=== PATIENT | female | born 1935 | race Caucasian/White ===

== ENCOUNTER 2019-02-23 12:21 | Inpatient (IN) | payer MEDICARE ==
[~2019-02-23] VITALS: Ht 157.5 cm; Wt 70.5 kg
[~2019-02-23 12:21] MED LIST: ALEVE PM CAPLE1 EACH PO; AMLO10 PO; ANTI-ANXIETY MED; ATOR40TA PO; Aspirin EC81 MG PO; Benazepril HCl40 MG PO; CLON1 PO; CLOP75 PO; METO25ER PO
[2019-02-23] MEDS ORDERED: SYNTHROID25 MCG PO (13:40)
[2019-02-23] MEDS ORDERED: CLONAZEPAM1 MG PO (13:41)
[2019-02-23] MEDS ORDERED: Benazepril HCl20 MG PO (13:41)
[2019-02-23 16:34] LABS: Troponin I 0.266 ng/mL (0.000-0.040)
--- NOTE | 2019-02-23 17:45 | NUR ---
eCHOCARDIOGRAM COMPLETED.
--- NOTE | 2019-02-23 18:51 | NUR ---
SHIFT SUMMARY Marisol arrived from ED around 4pm. denies chest pain at this time. oriented but soemwhat forgetful. npo until next troponin. plavix and lovenox held for possible procedure if troponin level rises. independent in room. took meds as prescribed. wctm
--- NOTE | 2019-02-23 20:07 | NUR ---
PT ASSESSED. DENIED PAIN, DENIED DIFFICULTY WITH BREATHING. sKIN WARM TO TOUCH. aLERT AND ORIENTED, DISCUSSED TROP LEVELS. K PAD TO FEET (SAID HER FEET WERE COLD). cALL LIGHT IN REACH. AGREES TO USE CALL LIGHT PRIOR TO GETTING UP.
--- NOTE | 2019-02-23 22:08 | NUR ---
Lab called with 2100 Troponin level: 5.370. electric tool repairer MD notified (Dr Toledo). Orders received to transfer to PCU and place on a Heparin Drip per pharmacy dosong after said trop level is posted.
[2019-02-23 22:10] LABS: Troponin I 5.37 ng/mL (0.000-0.040)
--- NOTE | 2019-02-23 22:40 | NUR ---
PT WAS ON OBSERVATION FOR CHEST PAIN. NPO UNTIL TROP LEVEL ZERO. TROPONIN LEVELS WERE MONITORED, AT SHIFT COMMENCE TROP LEVEL 0.266. TROP LEVEL DRAWN AT 2100: 5.370. ASYMPTOMATIC. DENIED CHEST PAIN, SKIN WARM TO TOUCH. ALERT AND ORIENTED. CALL PLACED TO MD. MD ORDERED TRANSFER TO PCU AND START A HEPARIN DRIP PER PHARMACY TO DOSE. VS TAKEN - HR 61; R 16 UNLABORED; BP 114/89; T 97.2 F - TEMPORAL. REPORT GIVEN TO DESMOND PERRY RN ON PCU. PT TRANSFERRED PER MD ORDER.
[2019-02-23 22:44] LABS: Creatine Kinase MB 41.9 ng/mL (0.0-3.6)
[2019-02-23 23:18] LABS: International Normalized Ratio 1.03; Prothrombin Time Results 10.9 Sec (9.7-11.5)
[2019-02-24 05:54] LABS: BASOPHILS ABSOLUTE AUTO 0.05 K/mm3 (0.00-0.23); BASOPHILS PERCENT AUTO 1 % (0-2); EOSINOPHILS ABSOLUTE AUTO 0.33 K/mm3 (0.00-0.68); EOSINOPHILS PERCENT AUTO 3 % (0-6); Hematocrit 36.7 % (33.0-51.0); Hemoglobin 12.3 g/dL (11.5-16.0); IMMATURE GRAN ABSOLUTE AUTO 0.04 K/mm3 (0.00-0.10); IMMATURE GRAN PERCENT AUTO 0 % (0-1); LYMPHOCYTES ABSOLUTE AUTO 2.37 K/mm3 (0.84-5.20); LYMPHOCYTES PERCENT AUTO 21 % (21-46); MONOCYTES ABSOLUTE AUTO 1.08 K/mm3 (0.16-1.47); MONOCYTES PERCENT AUTO 10 % (4-13); Mean Corpuscular HGB 31.1 pg (26.0-34.0); Mean Corpuscular HGB Conc 33.5 g/dL (31.5-36.5); Mean Corpuscular Volume 93 fL (80-100); Mean Platelet Volume 10.7 fL (9.1-12.4); NEUTROPHILS ABSOLUTE AUTO 7.24 K/mm3 (1.96-9.15); NEUTROPHILS PERCENT AUTO 65 % (41-73); Platelet Count 331 K/mm3 (150-400); RDW Coefficient Variation 13.2 % (11.7-14.2); RDW Standard Deviation 44.7 fL (35.1-46.3); Red Blood Cell Count 3.96 M/mm3 (3.80-5.20); White Blood Cell Count 11.11 K/mm3 (4.00-11.30)
--- NOTE | 2019-02-24 06:11 | NUR ---
PATIENT TRANSFERED FROM MEDICAL FLOOR PATIENT TRANSFERED DOWN FROM MEDICAL FLOOR DUE TO INCREASE IN TROPONIN - SEE LAB VALUES. PATIENT ARRIVES TO UNIT IN NSR - EKG PERFORMED (IN CHART). PATIENT ALERT AND ORIENTED X4 T/O SHIFT (FORGETFUL AT TIMES BUT REMEMBERS EASILY). PATIENT DENIES ANY PAIN OR SPECIFIC CHEST PAIN AT T/O THIS RNS' SHIFT. LUNG SOUNDS CLEAR - PATIENT ON ROOM AIR. VSS. PATIENT IN NSR T/O SHIFT WITH NO CARDIAC EVENTS. CALL LIGHT W/I REACH. PATIENT AMBULATES TO BATHROOM W/ SBA DUE TO LINES WELL. HEPARIN GTT AND NS GTT RUNNING PER EMAR. WILL CONTINUE TO MONITOR AND REPORT TO DAYSHIFT RN.
[2019-02-24 06:17] LABS: Anion Gap 8 mmol/L (6-16); Blood Urea Nitrogen 13 mg/dL (8-24); Bun/Creatinine Ratio 16.7 (12.0-20.0); CO2, Blood 21 mmol/L (21-32); Calcium, Blood 8.5 mg/dL (8.5-10.1); Chloride, Blood 114 mmol/L (98-108); Creatinine, Blood 0.78 mg/dL (0.40-1.00); Glomerular Filtration Rate >60 (60-); Glucose, Blood 96 mg/dL (70-99); Potassium, Blood 3.8 mmol/L (3.5-5.5); Sodium, Blood 143 mmol/L (136-145)
--- NOTE | 2019-02-24 07:41 | NUR ---
Heparin gtt verified at bedside with Flaco Mendez RN. Pt is alert, oriented, and pleasantly conversant. IVF NS also infusing at 100 cc/ hour.
[2019-02-24 08:53] LABS: Cholesterol 186 mg/dL (50-200); HDL Cholesterol 31 mg/dL (>39); LDL/HDL RATIO 3.7; Low Density Lipoprotein Chol 115 mg/dL (0-110); Triglycerides 202 mg/dL (30-160); Very Low Density Lipoprot Chol 40 mg/dL (6-32)
--- NOTE | 2019-02-24 09:03 | NUR ---
Asssisted Marisol with making phone calls to her , and also to a friend who can go pick her up. States that her has dementia. Marisol herself shows forgetfulness, and some difficulty understanding what is going on. Asked twice to have her IVs removed, and needed reminding as to what they were for. Assisted to bedside commode to void. States now she is having left sided chest discomfort, rates it at 2/10. Denies dyspnea. Report will be called by Flaco Mendez to ICU. Anticipate transfer of pt to ICU 8 shortly.
--- NOTE | 2019-02-24 09:22 | NUR ---
Dr. Rojotrate here, updated on pt condition and plan to transfer to ICU. Pt denies chest discomfort at this time.
--- NOTE | 2019-02-24 09:25 | NUR ---
PATIENT TRANSFER ORDERS RECEIVED FOR TRANSFER TO ICU, PATIENT LEFTY ROM AND UNIT IN HER BED BY TWO PCU STAFF, NO C/O PAIN AT THIS TIME.
--- NOTE | 2019-02-24 09:35 | NUR ---
INITIAL ASSESSMENT PATIENT ARRIVED TO ICU FROM PCU AT 0925. PATIENT ALERT AND ORIENTED X 4, ALTHOUGH APPEARS FORGETFUL AT TIMES. PATIENT OCCASIONALLY MAKES COMMENTS THAT ARE OUT OF CONTEXT FROM CONVERSATION. PATIENT STATES THAT HER HAS ALZHEIMERS BUT THAT A FRIEND WAS GOING TO BRING HIM IN TO SEE HER. PATIENT AFEBRILE. PATIENT WEAK, 1 PERSON ASSIST. PATIENT COMPLAINS OF 3/10 "ACHY CHEST PAIN". PATIENT WILL BE STARTED ON NITRO DRIP. PATIENT SATTING 90% AND GREATER ON RA. LUNGS CLEAR THROUGHOUT. PATIENT DENIES COUGH. PATIENT IN SR, HR IN THE 90S. BP STABLE. GI AND APPEAR WNL. SKIN PALE, COOL, FRAGILE, OTHERWISE APPEARS C/D/I. NS INFUSING AT 100 MLS/ HOUR. HEPARIN DRIP INFUSING AT 13 UNITS/ KG/ HOUR. PATIENT ORIENTED TO UNIT, ROOM, AND CALL SYSTEM. BED LOW, CALL LIGHT IN REACH. WILL CONTINUE TO MONITOR PATIENT FREQUENTLY THROUGHOUT SHIFT.
--- NOTE | 2019-02-24 12:20 | NUR ---
Echocardiogram completed.
--- NOTE | 2019-02-24 12:35 | NUR ---
PATIENT BACK FROM [facility]. PATIENT HAS TR BAND TO R RADIAL SITE- 11 CC AIR INSTILLED PER [facility] [employer] [facility] NURSES. SITE STABLE- NO BLEEDING, BRUISING, HEMATOMA NOTED. R INNER UA FIRM TO TOUCH AND PATIENT STATES IS SORE. 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 BAND ON AT 1216 PER [facility] NURSES.
--- NOTE | 2019-02-24 14:28 | NUR ---
2 CC AIR DEFLATED FROM TR BAND. NO BLEEDING, BRUISING, HEMATOMA NOTED. WILL CONTINUE TO MONITOR.
--- NOTE | 2019-02-24 15:13 | NUR ---
2 CC AIR DEFLATED FROM TR BAND. NO BLEEDING, BRUISING, HEMATOMA NOTED. WILL CONTINUE TO MONITOR.
--- NOTE | 2019-02-24 15:25 | NUR ---
2 CC AIR DEFLATED FROM TR BAND. SITE STABLE- NO BLEEDING, BRUISING, HEMATOMA NOTED. WILL CONTINUE TO MONITOR.
--- NOTE | 2019-02-24 15:35 | NUR ---
2 CC AIR DEFLATED FROM TR BAND. SITE REMAINS STABLE- NO BLEEDING, BRUISING, HEMATOMA NOTED. WILL CONTINUE TO MONITOR.
--- NOTE | 2019-02-24 16:05 | NUR ---
TR BAND FULLY DEFLATED. SITE REMAINS STABLE. NO BLEEDING, BRUISING, HEMATOMA NOTED. TR BAND AND ARMBOARD REMAIN IN PLACE. WILL CONTINUE TO MONITOR.
--- NOTE | 2019-02-24 16:10 | NUR ---
PATIENT RESTING QUIETLY IN BED. NO COMPLAINTS. AFEBRILE. PATIENT REMAINS SATTING 90% AND GREATER ON RA. PATIENT IN NSR, HR 60S TO 70S. BP STABLE. TR BAND FULLY DEFLATED- STABLE. NS AT 100 MLS/ HOUR. NO OTHER ACUTE CHANGES TO NOTE ON AT THIS TIME. WILL CONTINUE TO MONITOR.
--- NOTE | 2019-02-24 18:43 | NUR ---
Per admit trigger, I was tasked to meet with Mrs. Church to offer information about advanced care planning. She is pleasant and confused. He was at bedside and appears very confused. Both became tearful when talking about this hospitlization. It was clear to me that neither one of them is able to grasp the details of an Advanced Directive. Adult children live [id number], but this couple has good friends here who help-out once in awhile. Pt and spouse responded well to assurance of excellent care and attention. Prayer for healing provided to good effect. I will remain available.
--- NOTE | 2019-02-24 18:52 | NUR ---
SHIFT SUMMARY PATIENT REMAINED MOSTLY ALERT AND ORIENTED WITH SOME FORGETFULNESS AT TIMES AND SOME STATEMENTS OUT OF CONTEXT. PATIENT WEAK BUT ABLE TO AMBULATE TO TOILET WITH 1 PERSON ASSIST. PATIENT REMAINED AFEBRILE. PATIENT COMPLAINED OF 3/10 CHEST PAIN WHEN FIRST ARRIVED TO UNIT FROM PCU. PATIENT WAS STARTED ON NITRO DRIP AT THIS TIME. PATIENT HAS NOT HAD ANYMORE COMPLAINTS THROUGHOUT SHIFT. NITRO DC'D IN [facility]. PATIENT REMAINS SATTING WELL ON RA. PATIENT HAS REMAINED IN SR, HR 60S TO 90S. BP STABLE. GI WNL. NO BM THIS SHIFT. WNL. R RADIAL SITE HAS TEGADERM AND ARMBOARD IN PLACE- REMAINS STABLE, WITH NO BLEEDING, BRUISING, OR HEMATOMA NOTED. NS INFUSING AT 100 MLS/ HOUR. PATIENT HAD ECHO TODAY. PATIENT WENT TO [facility] TODAY, WAS BALLOONED AND 1 STENT PLACED TO LAD. BED LOW, CALL LIGHT IN REACH, BED ALARM ON. PATIENT HAS NO COMPLAINTS AT THIS TIME. WILL BE GIVING REPORT TO ONCOMING [employer] OPERATOR NURSE SHORTLY.
--- NOTE | 2019-02-24 19:48 | NUR ---
ASSUMPTION OF CARE PATIENT RESTING IN BED. IVs BOTH PATENT - LEFT AC SITE DRESSING HAS SMALL AMOUNT OF BLOOD ON DRESSING, HOWEVER IS NOT LEAKING AND FLUSHED WELL. R RADIAL SITE IS WNL. PLACED NS 100ML/HR ON STANDBY. NITRO DRIP ON STANDBY. A/O, FORGETFUL AT TIMES AND IMPULSIVE. BED ALARM ON FOR PT SAFETY. PT DENIES PAIN OR DISCOMFORT. CALL LIGHT WITHIN REACH. VITALS STABLE. SEE FLOWSHEET. WILL CONTINUE TO MONITOR. VICKY FERGUSON
[2019-02-25 03:34] LABS: BASOPHILS ABSOLUTE AUTO 0.07 K/mm3 (0.00-0.23); BASOPHILS PERCENT AUTO 1 % (0-2); EOSINOPHILS PERCENT AUTO 3 % (0-6); Hematocrit 39.5 % (33.0-51.0); Hemoglobin 12.9 g/dL (11.5-16.0); IMMATURE GRAN ABSOLUTE AUTO 0.03 K/mm3 (0.00-0.10); IMMATURE GRAN PERCENT AUTO 0 % (0-1); LYMPHOCYTES ABSOLUTE AUTO 1.38 K/mm3 (0.84-5.20); LYMPHOCYTES PERCENT AUTO 13 % (21-46); MONOCYTES PERCENT AUTO 9 % (4-13); Mean Corpuscular HGB 31.2 pg (26.0-34.0); Mean Corpuscular HGB Conc 32.7 g/dL (31.5-36.5); Mean Corpuscular Volume 96 fL (80-100); Mean Platelet Volume 10.5 fL (9.1-12.4); NEUTROPHILS ABSOLUTE AUTO 7.85 K/mm3 (1.96-9.15); NEUTROPHILS PERCENT AUTO 74 % (41-73); Platelet Count 318 K/mm3 (150-400); RDW Coefficient Variation 13.1 % (11.7-14.2); RDW Standard Deviation 45.9 fL (35.1-46.3); Red Blood Cell Count 4.13 M/mm3 (3.80-5.20); White Blood Cell Count 10.63 K/mm3 (4.00-11.30)
[2019-02-25 03:54] LABS: Alanine Aminotransfer (ALT/SGP 38 U/L (12-78); Albumin, Blood 3.4 g/dL (3.4-5.0); Albumin/Globulin Ratio 0.9 (0.8-1.8); Alk Phos 75 U/L (50-136); Anion Gap 7 mmol/L (6-16); Aspartate Aminotrans (AST/SGOT 71 U/L (12-37); Bilirubin, Total 0.5 mg/dL (0.1-1.0); Blood Urea Nitrogen 10 mg/dL (8-24); Bun/Creatinine Ratio 12.8 (12.0-20.0); CO2, Blood 22 mmol/L (21-32); Calcium, Blood 8.8 mg/dL (8.5-10.1); Chloride, Blood 113 mmol/L (98-108); Creatinine, Blood 0.78 mg/dL (0.40-1.00); Globulin, Blood 3.6 g/dL (2.2-4.0); Glomerular Filtration Rate >60 (60-); Glucose, Blood 92 mg/dL (70-99); Potassium, Blood 3.5 mmol/L (3.5-5.5); Sodium, Blood 142 mmol/L (136-145)
--- NOTE | 2019-02-25 05:21 | NUR ---
PT HAS BEEN RESTING QUIETLY AND HAS DENIED PAIN OR DISCOMFORT THROUGHOUT THE SHIFT. R RADIAL PUNCTURE SITE WNL WITH NO BLEEDING, SWELLING, OR HEMATOMA. BOTH IVs PATENT - NOTHING IS INFUSING CURRENTLY. IS FORGETFUL AT TIMES AND WILL REPEAT THINGS ALREADY SAID. VOIDS ON TOILET W/STANDBY ASSIST. SIDERAILS UP, CALL LIGHT IN REACH, BED IN LOWEST POSITON. VITALS STABLE. WILL CONTINUE TO MONITOR AND GIVE REPORT TO DAYSHIFT. VICKY HENRY SN
[2019-02-25] MEDS ORDERED: ACET325 PO (10:22)
[2019-02-25] MEDS ORDERED: ASPI325EC PO (10:23)
[2019-02-25] MEDS ORDERED: ATOR40TA PO (10:24)
[2019-02-25] MEDS ORDERED: BISA5EC PO (10:25)
[2019-02-25] MEDS ORDERED: CLOP75 PO (10:25)
[2019-02-25] MEDS ORDERED: NITR.4SL SL (10:27)
[2019-02-25] MEDS ORDERED: ONDA4ODT SL (10:28)
[2019-02-25] MEDS ORDERED: SENN187 PO (10:28)
--- NOTE | 2019-02-25 12:40 | NUR ---
CARE ASSUMED 0800: ASSESSMENT COMPLETED. PT ALERT AND ORIENTED X4, IRRITABLE AT TIMES BUT COOPERATIVE, SOME FORGETFULNESS NOTED. VSS, HR 70'S NSR, BP STABLE, PT DENIES CP/SOB. RIGHT RADIAL ACCESS SITE WNL, SMALL LIGHT BRUISING NOTED, NO ACTIVE BLEEDING, DRESSING CDI, ARM IMMOBILIZER IN PLACE. IV DC'D FOR INFILTRATION. 1000: PT TOLERATED PO MEDICATIONS WITHOUT DIFFICULTY, ATE BREAKFAST. UP TO BATHROOM TO VOID AND HAVE MED BM, GAIT STEADY WITH SBA. 'S IN TO ASSESS, DC ORDERS RECEIVED FOR NOON. PT CONTINUES TO DENY C/O, VSS. 1210: MEDS FAXED TO PHARMACY, F/U APPOINTMENTS MADE FOR PATIENT. 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 DC AND RX INSTRUCTIONS GIVEN TO PT AND , PATIENT VERBALIZES UNDERSTANDING, QUESTIONS ANSWERED. PT DC TO HOME AT THIS TIME WITH BELONGINGS AND INSTRUCTIONS, REFUSES WC, GAIT STEADY, PT CONTINUES TO DENY CP/SOB. TO ACCOMPANY PATIENT HOME.
== END 2019-02-25 12:05 | disposition home or self-care (01) | DRG 247 ==
LOC: ER 12:21 → PCU 12:22 → MEDS 12:22 → PCU 23:00 → ICUE 02-24 09:25
PROVIDERS: Internal Medicine; ADMIT Family Medicine
PROC: B2111ZZ Fluoroscopy of Multiple Coronary Arteries using Low Osmolar Contrast (ICD-10-PCS; principal; 2019-02-24)
PROC: 027034Z Dilation of Coronary Artery, One Artery with Drug-eluting Intraluminal Device, Percutaneous Approach (ICD-10-PCS; 2019-02-24)
PROC: B240ZZ3 Ultrasonography of Single Coronary Artery, Intravascular (ICD-10-PCS; 2019-02-24)
DX: I21.4 Non-ST elevation (NSTEMI) myocardial infarction (principal); I47.1 Supraventricular tachycardia; N17.9 Acute kidney failure, unspecified; Z86.73 Personal history of transient ischemic attack (TIA), and cerebral infarction without residual deficits; E03.9 Hypothyroidism, unspecified; E78.5 Hyperlipidemia, unspecified; M41.9 Scoliosis, unspecified; R73.9 Hyperglycemia, unspecified; E66.3 Overweight; E87.6 Hypokalemia; N18.3 Chronic kidney disease, stage 3 (moderate); I12.9 Hypertensive chronic kidney disease with stage 1 through stage 4 chronic kidney disease, or unspecified chronic kidney disease; Z68.30 Body mass index [BMI] 30.0-30.9, adult
CPT/HCPCS: 36415; 71046; 71260; 76937; 80048; 80053; 80061; 82550; 82553; 83880; 84443; 84484; 85025; 85049; 85347; 85379; 85610; 85730; 92978; 93005; 93010; 93306; 93308; 93454; 96361; 96374; 99152; 99153; 99285-25; C1725; C1753; C1769; C1874; C1887; C1894; C9600; G0378; J1644; J2250; J3010; J7030; J7040; Q9967

== ENCOUNTER 2019-02-27 10:48 | Emergency (ER) | payer MEDICARE ==
[~2019-02-27] VITALS: Ht 160 cm; Wt 77.1 kg
[~2019-02-27 10:48] MED LIST changes: +ACET325 PO; +ASPI325EC PO; +BISA5EC PO; +Benazepril HCl20 MG PO; +CLONAZEPAM1 MG PO; +NITR.4SL SL; +ONDA4ODT SL; +SENN187 PO; +SYNTHROID25 MCG PO
[2019-02-27] MEDS ORDERED: ARTHRITIS PAIN650 MG PO (11:11)
[2019-02-27 12:02] LABS: BASOPHILS ABSOLUTE AUTO 0.06 K/mm3 (0.00-0.23); BASOPHILS PERCENT AUTO 1 % (0-2); EOSINOPHILS ABSOLUTE AUTO 0.23 K/mm3 (0.00-0.68); EOSINOPHILS PERCENT AUTO 2 % (0-6); Hematocrit 41.1 % (33.0-51.0); Hemoglobin 13.5 g/dL (11.5-16.0); IMMATURE GRAN ABSOLUTE AUTO 0.04 K/mm3 (0.00-0.10); IMMATURE GRAN PERCENT AUTO 0 % (0-1); LYMPHOCYTES ABSOLUTE AUTO 1.49 K/mm3 (0.84-5.20); LYMPHOCYTES PERCENT AUTO 13 % (21-46); MONOCYTES ABSOLUTE AUTO 1.08 K/mm3 (0.16-1.47); MONOCYTES PERCENT AUTO 9 % (4-13); Mean Corpuscular HGB 31.5 pg (26.0-34.0); Mean Corpuscular HGB Conc 32.8 g/dL (31.5-36.5); Mean Corpuscular Volume 96 fL (80-100); Mean Platelet Volume 11.1 fL (9.1-12.4); NEUTROPHILS ABSOLUTE AUTO 8.63 K/mm3 (1.96-9.15); NEUTROPHILS PERCENT AUTO 75 % (41-73); Platelet Count 385 K/mm3 (150-400); RDW Coefficient Variation 13.3 % (11.7-14.2); RDW Standard Deviation 46.6 fL (35.1-46.3); Red Blood Cell Count 4.28 M/mm3 (3.80-5.20); White Blood Cell Count 11.53 K/mm3 (4.00-11.30)
[2019-02-27 12:04] LABS: Alanine Aminotransfer (ALT/SGP 58 U/L (12-78); Albumin, Blood 3.7 g/dL (3.4-5.0); Albumin/Globulin Ratio 0.9 (0.8-1.8); Alk Phos 78 U/L (50-136); Anion Gap 9 mmol/L (6-16); Aspartate Aminotrans (AST/SGOT 62 U/L (12-37); Bilirubin, Total 0.5 mg/dL (0.1-1.0); Blood Urea Nitrogen 14 mg/dL (8-24); Bun/Creatinine Ratio 15.9 (12.0-20.0); CO2, Blood 21 mmol/L (21-32); Calcium, Blood 9.2 mg/dL (8.5-10.1); Chloride, Blood 110 mmol/L (98-108); Creatinine, Blood 0.88 mg/dL (0.40-1.00); Glomerular Filtration Rate >60 (60-); Glucose, Blood 120 mg/dL (70-99); Potassium, Blood 4.1 mmol/L (3.5-5.5); Sodium, Blood 140 mmol/L (136-145); Total Protein, Blood 7.7 g/dL (6.4-8.2)
== END 2019-02-27 13:12 | disposition home or self-care (01) ==
LOC: ER 10:48
PROVIDERS: Emergency Medicine
DX: I20.9 Angina pectoris, unspecified (principal); R55 Syncope and collapse; I10 Essential (primary) hypertension; Z79.899 Other long term (current) drug therapy; Z79.82 Long term (current) use of aspirin
CPT/HCPCS: 36415; 71046; 80053; 85025; 93005; 93010; 99285-25

== ENCOUNTER 2019-05-24 16:06 | Emergency (ER) | payer MEDICARE ==
[~2019-05-24] VITALS: Ht 157.5 cm; Wt 59.0 kg
[~2019-05-24 16:06] MED LIST changes: +ARTHRITIS PAIN650 MG PO
[2019-05-24] MEDS ORDERED: Ativan1 MG PO (17:04)
== END 2019-05-24 17:19 | disposition home or self-care (01) ==
LOC: ER 16:06
DX: F41.9 Anxiety disorder, unspecified (principal); I10 Essential (primary) hypertension; E78.5 Hyperlipidemia, unspecified; E03.9 Hypothyroidism, unspecified; Z86.73 Personal history of transient ischemic attack (TIA), and cerebral infarction without residual deficits; Z79.899 Other long term (current) drug therapy; Z79.82 Long term (current) use of aspirin
CPT/HCPCS: 99283